=== PATIENT | male | born 1960 | race African-American/Black ===

== ENCOUNTER 2025-05-15 10:40 | Outpatient (CLI) | payer MEDICARE, MEDICAID, SELFPAY ==
--- OUTSIDE RECORDS SUMMARY | 2025-05-15 11:01 | XMS_ITS | Encounter Summary ---
Author Organization [facility] Address [address] [place] [address] Care Team Providers Care Wood Preparation Supervisor Name Role Phone Ling Sun MD Primary Care Provider Reason for Visit * Reason Comments Establish Care Encounter Details Date Type Department Care Team ([facility] st Contact Info) Description 05/15/2025 10:30 AM CDT Office Visit [facility] Oncology and Hematology - [place] [address] [facility] [address] [place] [address] Aba Hodge MD [address] [facility] [address] [place] [address] Chronic anemia (Primary Dx) Social History Tobacco Use Types Packs/Day Years Used Date Smoking Tobacco: Every Day Cigarettes 1 45 Started: 05/15/1980 Smokeless Tobacco: Never Tobacco Cessation:Ready to Q uit: Not Asked; Counseling Given: Not Answered Alcohol Use Standard Drinks/Week Comments Not Currently 0 (1 standard drink = 0.6 oz pur e alcohol) Sex and Gender Information Value Date Recorded Sex Assigned at Not on file Legal Sex Male 1:07 AM CDT Gender Identity Not on file Sexual Orientation Not on file documented as of this encounter Last Filed Vital Signs Vital Sign Reading Time Taken Comments Blood Pressure 194/97 05/15/2025 10:06 AM CDT Pulse 60 05/15/2025 10:00 AM CDT Temperature 36.2 C (97.2 F) 05/15/2025 10:00 AM CDT Respiratory Rate 16 05/15/2025 10:00 AM CDT Oxygen Saturation 94% 05/15/2025 10:00 AM CDT Inhaled Oxygen Concentration - - Weight 67.9 kg (149 lb 9.6 oz) 05/15/2025 10:00 AM CDT Height 167.6 cm (5' 6) 05/15/2025 10:00 AM CDT Body Mass Index 24.15 05/15/2025 10:00 AM CDT documented in this encounter Progress Notes * Aba Hodge MD - 05/15/2025 10:37 AM CDT Hematology-oncology consult Note Requesting Physician Ling Sun MD Primary Care Physician Ling Sun MD Problem list Patient Active Problem List Diagnosis Code Guaiac positive stools R19.5 Type 2 diabetes mellitus, with long-term current use of insulin ([facility]) E11.9, Z79.4 Acute anemia D64.9 HTN (hypertension), benign I10 Acute blood loss anemia D62 COPD (chronic obstructive pulmonary disease) ([facility]) J44.9 Hyperlipidemia E78.5 CHF (congestive heart failure) ([facility]) I50.9 GI bleeding K92.2 Anemia D64.9 Current use of intermediate accountant anticoagulation Z79.01 Gastritis K29.70 Previous TREATMENT ? Measurable Disease ? Reason for Visit Malik Herman is a 65 y.o. male who was referred for consultation for chronic anemia. History of present illness This is a 65-year-old -[place] male with history of chronic kidney disease, stroke, hypertension, diabetes, atrial fibrillation status post defibrillator placement has been dealing with anemia for 1 year duration. He is a poor historian and accompanied by his nephew today. He denies any bleeding including melena and hematochezia. He is taking oral iron once a day. Denies any excessive tiredness and fatigue. He had colonoscopy done 2 years ago and reportedly was normal. Patient had EGD done 1 year ago at [facility] and was put on pantoprazole due to gastritis. He has been taking off the Xarelto and aspirin due anemia. He denies being a vegetarian. Denies any previous stomach surgeries. His weight and appetite stable. Denies any history of malignancy. No other new complaints. Past Medical History Past Medical History: Diagnosis Date Congestive heart failure ([facility]) Diabetes mellitus ([facility]) Emphysema of lung ([facility]) Hypertension Stroke ([facility]/H[facility]) Surgical History Past Surgical History: Procedure Laterality Date HX ESOPHAGOGASTRODUODENOSCOPY N/A 08/02/2024 ESOPHAGOGASTRODUODENOSCOPY performed by Beth Merino MD at [facility] END[facility]COPY Medications Current Outpatient Medications Medication Sig Dispense Refill ferrous sulfate 325 mg (65 mg iron) tablet Take 325 mg by mouth daily. cyanocobalamin 1,000 mcg Tablet Take 1,000 mcg by mouth daily. metoprolol tartrate (LOPRESSOR) 50 mg tablet Take 50 mg by mouth 2 times daily. pantoprazole (PROTONIX) 40 mg Tablet, Delayed Release (E.C.) Take 40 mg by mouth daily. amLODIPine (NORVASC) 10 mg tablet Take 10 mg by mouth daily. docusate sodium (COLACE) 100 mg capsule Take 100 mg by mouth daily. insulin glargine (LANTUS) 100 unit/mL injection Inject 10 Units by subcutaneous injection daily at bedtime. insulin lispro (HumaLOG,ADMELOG) 100 unit/mL vial Inject 15 Units by subcutaneous injection 3 timesdaily with meals. empagliflozin (Jardiance) 10 mg tablet Take 10 mg by mouth daily in the morning. polyethylene glycol 3350 (MIRALAX) 17 gram/dose Powder Take 17 Grams by mouth daily. Dissolve in 8 ounces of fluid and drink entire liquid Cholecalciferol, Vitamin D3, 50 mcg (2,000 unit) Capsule Take 2,000 Units by mouth daily. No current facility-administered medications for this visit. Allergies No Known Allergies Immunizations: Immunization History Administered Date(s) Administered (SPIKEVAX) (12 YRS UP PRIMARY SERIES) COVID-19 VACCINE - MRNA-1273(PF) 100 MCG/0.5 ML IM SUSP 05/23/2021 Family History Family History Problem Relation Name Age of Onset Diabetes Father No Known Problems Mother Hypertension Brother 6 brothers Diabetes Sister No Known Problems Sister Colon Cancer Neg Hx Esophageal Cancer Neg Hx Gastric Cancer Neg Hx Liver Cancer Neg Hx Pancreatic Cancer Neg Hx Social History Social History Tobacco Use Smoking status: Every Day Current packs/day: 1.00 Average packs/day: 1 pack/day for 45.0 years (45.0 ttl pk-yrs) Types: Cigarettes Start date: 05/15/1980 Smokeless tobacco: Never Substance Use Topics Alcohol use: Not Currently Review of Systems Constitutional: Patient did not mention fever; no night sweats; no anorexia; no weight loss; no fatique NEENT: Patient did not mention headache; no change in vision; no change in hearing; no sore throat;no dysphagia Respiratory: Patient did not mention shortness of breath; no pleuritic chest pain; no cough; no hemoptysis Cardiac: Patient did not mention cardiac-like chest pain; no palpitations; no orthopnea; no PND; noDOE GI: Patient did not mention abdominal pain; no nausea; no vomiting; no diarrhea; no hematochezia; no melena : Patient did not mention dysuria; no frequency; no hesitancy; no hematuria BRICK SORTER: Musculosketetal: Patient did not mention bone pain; no arthralgia; no joint swelling; no myalgia; Skin: Patient did not mention pruritis; no rash; no petechiae; no ecchymoses Endocrine: Patient did not mention polydipsia; no polyuria; no unusual weight gain Neuro: Patient did not mention headache; no change in vision; no sensory changes; no muscle weakness; no confusion; no seizures Psych: Patient did not mention anxiety; no depression; Physical Exam Vitals: As per nursing note Constitutional: Well developed, well nourished, no acute distress, non-toxic appearance Teeth and gum. No signs of infection or swelling. Eyes: PERRL, conjunctiva normal HEENT: Atraumatic, external ears normal, nose normal, oropharynx moist, no pharyngeal exudates. no sinus tenderness Neck- normal range of motion, no tenderness, supple Respiratory: No respiratory distress, normal breath sounds, no rales, no wheezing Cardiovascular: Normal rate, normal rhythm, no murmurs, no gallops, no rubs GI: Soft, nondistended, normal bowel sounds, nontender, no splenomegaly, no hepatomegaly, no mass, no rebound, no guarding : No costovertebral angle tenderness Musculoskeletal: No edema, no tenderness, no deformities. Back- no tenderness Integument: Well hydrated, no rash, Digits and nails inspection normal Lymphatic: No lymphadenopathy noted Neurologic: Alert & oriented x 3, CN 2-12 normal, normal motor function, normal sensory function, no focal deficits noted Psychiatric: Speech and behavior appropriate ? labs No results found for this or any previous visit (from the past 24 hours). Labs from January 2025 showed hemoglobin 8.5 MCV 77 platelet 356,000 WBC 4.3 creatinine 1.8 GFR 44 calcium 9.2 total bilirubin 0.9 Pathology ? Imaging & Other Studies Performance Status? Assessment / Plan: ? Chronic anemia. Patient is a 65-year-old male with history of chronic kidney disease, hypertension, diabetes, stroke and atrial fibrillation is status post defibrillator placement. Patient has been taken off the Xarelto and aspirin by sail repair person due to anemia. He denies any excessive tiredness and fatigue. Denies any bleeding including melena hematochezia. EGD done last year at [facility] showed gastritis and was started on pantoprazole. Colonoscopy done 2 years ago was unremarkable. Patient is a poor historian and this history was taken mostly from the nephew accompanied him. I have reviewed the labs and informed the patient that his anemia is likely secondary to chronic kidney disease and possibility of iron deficiency due to low MCV. I will order the workup including CBC, CMP, serum protein electrophoresis with immunofixation, iron studies, soluble transferrin receptor, vitamin B12 and folic acid level and methylmalonic acid level. No need for bone marrow biopsy testing at this time. He will continue oral iron once a day. Follow-up with me in 2 weeks. I have ans wered all the questions to patient and the family satisfaction. Chronic kidney disease. He has appointment to see the sign letterer. Type 2 diabetes. Patient is on insulin and Jardiance. Hypertension. He is on Norvasc and metoprolol. Thank you very much for allowing me to participate in Malik Herman's evaluation and management. Please feel free to contact if I can be of any further assistance in your patient???s care requiring hematology or oncology evaluation. Sincerely, ? ? Aba Hodge M.D. cell TOBACCO COUNSELING He is not a tobacco/nicotine user. Aba Hodge MD ,05/15/2025 10:37 AM ? Total time spent 60 minutes, two third of the total time spent counseling patient [id number]. CC:?Ling Sun MD documented in this encounter Plan of Treatment Upcoming Encounters Date Type Department Care Team (Late st Contact Info) Description 05/29/2025 4:30 PM CDT Telephone Check Up [facility] Oncology and Hematology - [place] [address] [facility] [address] [place] [address] Aba Hodge MD [address] [facility] [address] [place] [address] Scheduled Orders Name Type Priority Associated Diagnoses Orde r Schedule CBC WITH DIFFERENTIAL Lab Stat Chronic anemia Expected: 05/15/2025, Expires: 05/15/2026 COMPREHENSIVE METABOLIC PANEL Lab Stat Chronic anemia Expected: 05/15/2025, Expires: 05/15/2026 FERRITIN Lab Routine Chronic anemia Expected: 05/15/2025, Expires: 05/15/2026 IRON, TIBC, AND PERCENT SATURATION Lab Routine Chronic anemia Expected: 05/15/2025, Expires: 05/15/2026 METHYLMALONIC ACID Lab Routine Chronic anemia Expected: 05/15/2025, Expires: 05/15/2026 TRANSFERRIN RECEPTOR TFR SOLUBLE Lab Routine Chronic anemia Expected: 05/15/2025, Expires: 05/15/2026 VITAMIN B12 AND FOLATE Lab Routine Chronic anemia Expected: 05/15/2025, Expires: 05/15/2026 PROTEIN ELECTROPHORESIS W/REFLEX,SERUM Lab Routine Chronic anemia Expected: 05/15/2025, Expires: 05/15/2026 documented as of this encounter Visit Diagnoses Diagnosis Chronic anemia- Primary Anemia, unspecified documented in this encounter Care Teams Wood Preparation Supervisor Relationship Specialty Start Date End Date Ling Sun MD [address] [place] [address] PCP - General Internal Medicine 05/15/25 documented as of this encounter
--- OUTSIDE RECORDS SUMMARY | 2025-05-15 11:01 | XMS_ITS | Clinical Summary ---
Author Organization [facility] Address [address] [place] [address] Phone Care Team Providers Care Flat Folder Name Role Phone Ling Sun MD Primary Care Provider Allergies No known active allergies Medications amLODIPine (NORVASC) 10 mg tablet Take 10 mg by mouth daily. Active docusate sodium (COLACE) 100 mg capsule Take 100 mg by mouth daily. Active insulin glargine (LANTUS) 100 unit/mL injection Inject 10 Units by subcutaneous injection daily at bedtime. Active insulin lispro (HumaLOG,ADMELO G) 100 unit/mL vial Inject 15 Units by subcutaneous injection 3 times daily with meals. Active empagliflozin (Jardiance) 10 mg tablet Take 10 mg by mouth daily in the morning. Active polyethylene glycol 3350 (MIRALAX) 17 gram/dose Powder Take 17 Grams by mouth daily. Dissolve in 8 ounces of fluid and drink entire liquid Active Cholecalciferol , Vitamin D3, 50 mcg (2,000 unit) Capsule Take 2,000 Units by mouth daily. Active cyanocobalamin 1,000 mcg Tablet Take 1,000 mcg by mouth daily. Active metoprolol tartrate (LOPRESSOR) 50 mg tablet Take 50 mg by mouth 2 times daily. Active pantoprazole (PROTONIX) 40 mg Tablet, Delayed Release (E.C.) Take 40 mg by mouth daily. Active ferrous sulfate 325 mg (65 mg iron) tablet Take 325 mg by mouth daily. Active Active Problems Problem Noted Date Diagnosed Date Gastritis 08/08/2024 Guaiac positive stools 07/31/2024 Type 2 diabetes mellitus, wi th long-term current use of insulin 07/31/2024 Acute anemia 07/31/2024 HTN (hypertension), benign 07/31/2024 Acute blood loss anemia 07/31/2024 COPD (chronic obstructive pulmonary disease) Hyperlipidemia 07/31/2024 CHF (congestive heart failure) 07/31/2024 GI bleeding 07/31/2024 Anemia 07/31/2024 Current use of mcc anticoagulation 024 Encounters Date Type Department Care Team Description 05/15/2025 10:30 AM CDT Office Visit [facility] Oncology and Hematology - [place] [address] [place] [address] Aba Hodge MD Chronic anemia (Primary Dx) 04/17/2025 External Device Data STL ABSTRACTION Provider, Abstract 04/16/2025 External Device Data [facility] ABSTRACTION Provider, Abstract 03/19/2025 External Device Data [facility] ABSTRACTION Provider, Abstract 02/20/2025 External Device Data [facility] ABSTRACTION Provider, Abstract 02/19/2025 External Device Data [facility] ABSTRACTION Provider, Abstract from Last 3 Months Family History Medical History Relation Name Comments Hypertension Brother 6 brothers Diabetes Father No Known Problems Mother Diabetes Sister 1 No Known Problems Sister 2 Colon Cancer Neg Hx Esophageal Cancer Neg Hx Gastric Cancer Neg Hx Liver Cancer Neg Hx Pancreatic Cancer Neg Hx Relation Name Status Comments Brother 6 brothers Other Father Mother Sister 1 Sister 2 Social History Tobacco Use Types Packs/Day Years [...] on file Sexual Orientation Not on file Last Filed Vital Signs Vital Sign Reading [...] Mass Index 24.15 05/15/2025 10:00 AM CDT Plan of Treatment Upcoming Encounters Date Type Department Care Team (Late st Contact Info) Description 05/29/2025 4:30 PM CDT Telephone Check Up [facility] Oncology and Hematology - [place] [address] [facility] [address] [place] [address] Aba Hodge MD [address] [facility] [address] [place] [address] Health Maintenance Due Date Last Done Comments DIABETES ANNUAL FOOT EXAM 1976 DIABETES ANNUAL RETINAL EXAM 1976 DIABETES HBA1C Q 6 MONTHS 1976 DIABETES MICROALBUMIN ANNUAL SCREEN 1976 LDL CHOLESTEROL ANNUAL 1976 DTAP/TDAP/TD VACCINES (1 - Tdap) 1977 COLORECTAL SCREENING 2003 Colorectal Cancer Screening 2003 FIT-DNA Q 3 years 2003 FIT/FOBT Q 1 year 2003 Flex Sig/CT Colonography Q 5 years 2003 ZOSTER VACCINE (1 of 2) 2008 PNEUMOCOCCAL VACCINE 50+ YEA RS (2 of 2 - PCV) 09/14/2015 09/14/2014 RSV VACCINE (60+ or ) (1 - Risk 60-74 years 1-dose series) 2018 Abdominal Aortic Aneurysm (A AA) Screening 2023 COVID-19 Vaccine (2 - 2023-2 5 season) 2024 05/23/2021 INFLUENZA VACCINE (#1) 2025 , 07/17/2019, 05/23/2019, Additional history exists Traditional Medicare (ACO) A nnual Wellness Visit 10/16/2025 10/15/2024, 08/27/2024 Insurance [place] MED[place]ARE PART A AND B [employer] Medicare Part D MEDICARE PART A [place] B [place] Advance Directives For more information, please contact: [phone] Documents on File Type Date Recorded Patient Waiter/Waitress Third Class Expl anation Advance Directive POA 08/08/2024 7:19 AM A dvance Directive POA Advance Directive POA 07/31/2024 1:46 PM * Full Code (Latest Code Status on File) Date Activated Date Inactivated Comments 07/31/2024 12:03 PM 08/03/2024 8:02 PM Care Teams Flat Folder Relationship Specialty Start Date End Date Ling Sun MD [address] [place] [id number] PCP - General Internal Medicine 05/15/25
[2025-05-15 12:07] LABS: Hematocrit 48.4 % (42.0-52.0); Hemoglobin 15.5 g/dL (14.0-18.0); Immature Granulocyte Percent A 0.2 % (0-0.5); Lymphocytes Absolute Auto 2.10 K/mm3 (0.9-3.2); Mean Corpuscular HGB Conc 32.0 g/dl (32-36); Mean Corpuscular Hemoglobin 26.4 pg (26-34); Mean Corpuscular Volume 82.3 fl (80-100); Nucleated Red Blood Cells Absolute Auto 0.000 K/mm3 (0.0-0.012); Nucleated Red Blood Cells Perc 0.0 % (0.0-0.2); Platelet Count Result 354 k/mm3 (150-375); Red Blood Count 5.88 M/mm3 (4.6-6.20); White Blood Count 5.3 K/mm3 (4.5-10.0)
[2025-05-15 12:30] LABS: Iron 97 ug/dL (49-181)
[2025-05-15 12:40] LABS: Percent Iron Saturation 36 % (20-50)
[2025-05-15 13:11] LABS: Ferritin 72.70 ng/mL (11.1-264)
[2025-05-15 13:18] LABS: Alanine Aminotransferase 23 U/L (6-50); Albumin Level 3.9 g/dL (3.5-5.1); Alkaline Phosphatase 117 U/L (38-126); Anion Gap 9 mmol/L (4-12); Aspartate Amino Transferase 41 U/L (17-59); Bilirubin,Total 0.5 mg/dL (0.2-1.3); Blood Urea Nitrogen 23 mg/dL (9-20); Calcium 9.6 mg/dL (8.4-10.2); Carbon Dioxide 26 mmol/L (22-30); Chloride 110 mmol/L (98-107); Estimated Glomerular Filt Rate 30; Glucose 36 mg/dL (65-110); Potassium 3.3 mmol/L (3.4-5.0); Sodium 145 mmol/L (137-145); Total Protein 7.9 g/dL (6.3-8.2)
[2025-05-15 13:45] LABS: Vitamin B12 > 1000.0 pg/mL (239-931)
[2025-05-16 15:09] LABS: Albumin 3.2 g/dL (2.9-4.4); Alpha-1-Globulin 0.4 g/dL (0.0-0.4); Alpha-2-Globulin 1.1 g/dL (0.4-1.0); Gamma Globulin 1.1 g/dL (0.4-1.8)
== END 2025-05-15 10:41 | disposition home or self-care (01) ==
PROVIDERS: PCP Internal Medicine; Visit Provider Internal Medicine Hematology & Oncology
DX: D64.9 Anemia, unspecified (principal)
CPT/HCPCS: 36415; 80053; 82607; 82728; 82746; 83540; 83550; 84155; 84165; 84238; 85025